=== PATIENT | female | born 1985 | race Caucasian/White ===

== ENCOUNTER 2018-06-07 11:19 | Emergency (ER) | payer MEDICAID ==
[2018-06-07] MEDS ORDERED: Sodium Chloride 0.9% 1,000 ML IV STA (12:11)
[2018-06-07 12:33] LABS: BASO # 0.1 K/uL (0.0-0.2); BASO % 0.8 % (0.0-2.0); EOS # 0.1 K/uL (0.0-0.7); EOS % 2.1 % (0.0-4.0); HEMOGLOBIN 11.3 g/dL (12.0-16.0); LYMPH # 1.3 K/uL (1.0-4.3); LYMPH % 18.5 % (20.0-40.0); MEAN CELL VOLUME 62.2 fl (81.0-99.0); MEAN CORPUSCULAR HEMOGLOBIN 19.7 pg (27.0-31.0); MEAN CORPUSCULAR HGB CONC 31.7 g/dL (33.0-37.0); MEAN PLATELET VOLUME 8.9 fl (7.2-11.7); MONO # 0.6 K/uL (0.0-0.8); MONO % 8.9 % (0.0-10.0); NEUT # 4.8 K/uL (1.8-7.0); NEUT % 69.7 % (50.0-75.0); NRBC % 0.2 % (0.0-0.0); RBC 5.72 Mil/uL (3.80-5.20); RED CELL DISTRIBUTION WIDTH 16.6 % (11.5-14.5)
[2018-06-07 12:40] LABS: ALB/GLOB RATIO 1.4 (1.0-2.1); ALBUMIN 4.3 g/dL (3.5-5.0); ALT/SGPT 21 U/L (9-52); AST/SGOT 23 U/L (14-36); BLOOD UREA NITROGEN 10 mg/dl (7-17); CALCIUM 9.2 mg/dL (8.4-10.2); GFR NON-AFRICAN AMERICAN > 60
[2018-06-07 12:56] LABS: URINE CLARITY Clear (Clear); URINE COLOR YELLOW (YELLOW)
[2018-06-07 12:57] LABS: URINE BILIRUBIN NEGATIVE (NEGATIVE); URINE BLOOD NEGATIVE (NEGATIVE); URINE GLUCOSE (UA) NEG (Normal); URINE PROTEIN NEGATIVE (NEGATIVE)
[2018-06-07 12:58] LABS: SQUAMOUS EPITHIAL 1 /hpf (0-5); URINE LEUKOCYTE ESTERASE NEG Leu/uL (Negative); URINE UROBILINOGEN 0.2-1.0 mg/dL (0.2-1.0)
--- NOTE | 2018-06-07 13:01 | ED PDOC ---
HPI: General Adult Time Seen by Provider: 06/07/18 12:04 Chief Complaint (Nursing): Flu-like Symptoms Chief Complaint (Provider): fatigue History Per: Patient, Family (father) History/Exam Limitations: no limitations Onset/Duration Of Symptoms: Intermittent Episodes (x several weeks to months), Gradual Current Symptoms Are (Timing): Intermittent Episodes Severity: Moderate Additional Complaint(s): 32yo female c/o fatigue, mild nausea and generalized feelings of unwellness over last several weeks. Concerned as she has been drinking out of a metal water bottle she recently discovered to have black mold. Denies fever, weight loss, SOB, chest pain, or abd pain. Notes she saw small blood in stool several weeks ago none since. Denies fam hx colon cancer. Past Medical History Reviewed: Historical Data, Nursing Documentation, Vital Signs Vital Signs: Last Vital Signs Temp 98.0 F 06/07/18 11:25 Pulse 72 06/07/18 11:25 Resp 15 06/07/18 11:25 BP 108/70 06/07/18 11:25 Pulse Ox 100 06/07/18 11:25 - Medical History PMH: No Chronic Diseases - Surgical History Surgical History: No Surg Hx - Family History Family History: States: Other Other Family History: malignancy mother but not from malignancy - Living Arrangements Living Arrangements: With Family - Social History Current smoker - smoking cessation education provided: No (quit) - Allergies Allergies/Adverse Reactions: Allergies Allergy/AdvReac Type Severity Reaction Status Date / Time Penicillins Allergy ITCHING Verified 06/07/18 11:35 Review of Systems Constitutional: Positive for: Weakness (generalized), Malaise, Other (fatigue). Negative for: Fever, Chills, Weight loss Eyes: Negative for: Eyelid Inflammation ENT: Negative for: Ear Pain, Nose Discharge, Mouth Swelling, Throat Swelling Cardiovascular: Negative for: Chest Pain, Palpitations Respiratory: Negative for: Cough, Shortness of Breath Gastrointestinal: Positive for: Nausea, Hematochezia. Negative for: Vomiting, Abdominal Pain, Constipation, Hematemesis Genitourinary Female: Negative for: Dysuria Musculoskeletal: Negative for: Neck Pain Skin: Negative for: Rash, Lesions Neurological: Positive for: Headache, Dizziness. Negative for: Weakness, Numbness Psych: Negative for: Suicidal ideation Physical Exam - Reviewed Nursing Documentation Reviewed: Yes Vital Signs Reviewed: Yes - Physical Exam Appears: Positive for: Well Head Exam: Positive for: ATRAUMATIC, NORMAL INSPECTION, NORMOCEPHALIC Skin: Positive for: Normal Color, Warm, DRY Eye Exam: Positive for: EOMI, Normal appearance, PERRL ENT: Positive for: Normal ENT Inspection Neck: Positive for: Normal, Painless ROM Cardiovascular/Chest: Positive for: Regular Rate, Rhythm Respiratory: Positive for: CNT, Normal Breath Sounds Gastrointestinal/Abdominal: Positive for: Normal Exam, Soft Back: Positive for: Normal Inspection Extremity: Positive for: Normal ROM Neurologic/Psych: Positive for: Alert, Oriented - Laboratory Results Result Diagrams: 06/07/18 12:22 06/07/18 12:22 Urine POC: Negative - ECG ECG: Positive for: Interpreted By Me ECG Rhythm: Positive for: Normal QRS, Normal ST Segment, Sinus Rhythm. Negative for: ST/T Changes Rate: 65 O2 Sat by Pulse Oximetry: 100 Pulse Ox Interpretation: Normal Medical Decision Making Medical Decision Making: diagnostics and labs reviewed and unremarkale no indication for acute hospitalization at the time of visit given unremarkable clinical exam, vitals normal, normal labs and no evidence systemic infection requiring acute IV antibiotics, dehydration, emergent cardiac or neurologic process underway. Note requires outpatient GI workup, patient told of need given small blood in stool and mild anemia noted labs. Disposition - Clinical Impression Clinical Impression: Fatigue, Anemia - Patient ED Disposition Is Patient to be Admitted: No Counseled Patient/Family Regarding: Studies Performed, Diagnosis, Need For Followup - Disposition Referrals: [facility] [Outside] FAMILY PROVIDER,NO [Primary Care Provider] - Disposition: Routine/Home Disposition Time: 15:01 Condition: STABLE Additional Instructions: Return to ER for any concern for self. Instructions: Fatigue (DC), Anemia Caused by Low Iron, Adult (DC) Forms: [employer] (Arabic)
[2018-06-07 16:59] VITALS: BP 110/79; RESP 18; TEMP 98.3
--- NOTE | 2018-06-08 07:01 | CARD ---
APPROVED REPORT Date of service: 06/07/2018 EKG Measurement Heart [id number] <Conclusion> Normal sinus rhythm Normal ECG
[2018-06-15 12:13] VITALS: PULSE 65; O2SAT 100
== END 2018-06-07 16:59 | disposition short-term general hospital (02) ==
LOC: H.ER 11:19 → SUPCPDRO 11:19 → H.ER 16:59
DX: R53.83 Other fatigue (principal); D64.9 Anemia, unspecified; Z88.0 Allergy status to penicillin
CPT/HCPCS: 80053; 81003; 85025; 93005; 99284; J7030